=== PATIENT | female | born 1995 | race Caucasian/White ===

== ENCOUNTER 2017-02-01 20:33 | Outpatient (CLI) | payer OTHER ==
[~2017-02-01] VITALS: Ht 157.5 cm; Wt 69.6 kg
[2017-02-01 20:41] VITALS: BMI 27.0
[2017-02-01 20:43] VITALS: BP 111/70; PULSE 115; RESP 18
[2017-02-01 20:46] VITALS: Ht 157.5 cm; Wt 69.6 kg
[2017-02-01] MEDS ORDERED: PRENAT PO (21:53)
[2017-02-01] MEDS ORDERED: FERR325C PO (21:53)
[2017-02-01] MEDS ORDERED: CALC-516 PO (21:53)
--- NOTE | 2017-02-01 21:59 | RADRPT ---
PROCEDURE: Limited obstetric ultrasound CLINICAL INDICATION: Pain , pelvic cramping TECHNIQUE: Multiple transverse and longitudinal grayscale images of the pelvis were obtained brooks sabdominally and transvaginally.. COMPARISON: same day FINDINGS: The cervix is closed with a length of 3.7 cm. There is a single viable intrauterine gestation. Cardiac activity is present with 160 beats per min [place]. There is a vertex presentation. The placenta is posterior. There is no evidence for an abruption or placenta previa. RPTAT: AA IMPRESSION: Cervix length measures 3.7 cm. .Kamran Reyes MD, Date Time Electronically viewed and signed by .Kamran Reyes MD, on 02/01/2017 21:59 .S/
[2017-02-01 22:09] LABS: ADD UMIC YES; URINE BILIRUBIN (Dip) NEGATIVE (NEGATIVE); URINE BLOOD (Dip) NEGATIVE (NEGATIVE); URINE COLOR LT. YELLOW (YELLOW); URINE GLUCOSE (Dip) NEGATIVE (NEGATIVE); URINE KETONES (Dip) NEGATIVE (NEGATIVE); URINE LEUKOCYTE ESTERASE (Dip) 3+ (NEGATIVE); URINE NITRITE (Dip) NEGATIVE (NEGATIVE); URINE TOTAL PROTEIN (Dip) NEGATIVE (NEGATIVE); URINE UROBILINOGEN (Dip) 0.2 E.U./dL (0.1-1.0)
[2017-02-01 22:24] LABS: SQUAMOUS EPITHELIAL CELL,UR MODERATE; URINE RBCS NONE SEEN /HPF (0)
[2017-02-01] MEDS ORDERED: ACETAMINOPHEN 325 MG TAB PO STA (22:39)
--- NOTE | 2017-02-02 00:14 | TRIAGE ---
OB Triage Datetime Report Generated by CPN: 02/02/2017 00:14 Datetime: 02/01/2017 23:07 Stage of : OB Triage Labor Evaluation Frequency: occasional Monitor Mode: External Duration (sec)2399: 60-120 Pattern: Normal: <= 5 Contractions in 10 Minutes Resting Tone [place]: Relaxed Heart Rate FHR Baseline Rate: 130 Monitor Mode: External US Variability: Moderate 6-25 bpm Accelerations: 15X15 Decelerations: Variable Category: Category II Comments: Normal for gestational age. Pain Assessment Pain Scale: 6 Pain Presence: Intermittent Pain Type: Ache Pain Location: Abdomen; Right Groin; Left Groin Pain Goal: 3 Pain Relief Measures: Comfort Measures Datetime: 02/01/2017 22:42 Pain Assessment Pain Scale: 8 Pain Presence: Intermittent Pain Type: Ache Pain Location: Abdomen; Right Groin; Left Groin Pain Goal: 3 Pain Relief Measures: Pain Medication Given; Comfort Measures Pain Assessment Comments: Tylenol 650mg PO given for pain Datetime: 02/01/2017 22:00 Stage of : OB Triage Labor Evaluation Frequency: occasional Monitor Mode: External Duration (sec)2399: 60-120 Pattern: Normal: <= 5 Contractions in 10 Minutes Resting Tone [place]: Relaxed Heart Rate FHR Baseline Rate: 140 Monitor Mode: External US Variability: Moderate 6-25 bpm Accelerations: 15X15 Decelerations: None Category: Category I Datetime: 02/01/2017 21:01 Stage of : OB Triage Temperature Route: Oral Labor Evaluation Frequency: none Monitor Mode: External Pattern: Normal: <= 5 Contractions in 10 Minutes Resting Tone [place]: Relaxed Heart Rate FHR Baseline Rate: 140 Monitor Mode: External US Variability: Moderate 6-25 bpm Accelerations: 15X15 Decelerations: Variable Category: Category II Comments: Normal for gestational age Pain Assessment Pain Scale: 8 Pain Presence: Intermittent Pain Type: Contraction Pain Location: Right Groin; Left Groin Pain Goal: 3 Pain Relief Measures: Comfort Measures Datetime: 02/01/2017 20:53 Time of Arrival: 02/01/2017 20:25 EGA: 29.2 Arrived By: Wheelchair Arrived From: Home Chief Complaint: LOW ABD CRAMPING SINCE 1330 Movement: Present Contractions: Irregular Time Contractions Began: 02/01/2017 13:30 Contractions: Q 10MIN Rupture of Membranes: Denies Vaginal Bleeding: None Vaginal Discharge: Denies Recent Sexual Intercouse: Denies Abdominal Trauma: Not Applicable Patient Complaints: Cramping; Back Pain Time Provider Notified: 02/01/2017 21:10 Provider Notified: Initial Plan: VS, EFM Datetime: 02/01/2017 20:46 Assessment Type: Triage Maternal Assessment Level of Consciousness: Fully Conscious DTR's/Clonus: DTRs 1+ Headache: Denies Blurred Vision: No Respiratory Effort: Unlabored Breath Sounds, Left: Clear and Equal Breath Sounds, Right: Clear and Equal Nausea/Vomiting: Present RUQ Epigastric Pain: Denies Lower Extremities Edema: None Degree: None Upper Extremities Edema: None Degree: None Facial Edema: None Fall Risk Assessment History of Falling: (0) No Secondary Diagnosis: (15) Yes (Annotations: C/S X 2) Ambulatory Aid: (0) Bedrest/Nurse Assist IV Therapy: (0) No Gait: (0) Normal/Bedrest/Immobile Mental Status: (0) Oriented to Own Ability Fall Score: 15 Fall Risk Score Definition: No Risk: No action required Datetime: 02/01/2017 20:35 Stage of : OB Triage Monitor Mode: External Monitor Mode: External US
--- NOTE | 2017-02-02 05:35 | QN ---
Documentation Comment 22-year-old with IUP at 29 weeks and 2 days presented with complaint of lower abdominal pain and cramps. Patient denies any leaking of fluid vaginal bleeding. She also reports pain with urination. She reports good movement. Physical examination: General appearance: Alert and oriented 4 patient is not in any acute distress. Abdomen: Soft, gravid, fundal height consistent with gestational age. no rebound tenderness, mild suprapubic tenderness noted Extremities: No calf tenderness, no click, no edema NST: Category 1, appropriate for gestational age Contractions on the monitor every 10-15 minutes noted. PROCEDURE: Limited obstetric ultrasound CLINICAL INDICATION: Pain , pelvic cramping TECHNIQUE: Multiple transverse and longitudinal grayscale images of the pelvis were obtained transabdominally and transvaginally.. COMPARISON: same day FINDINGS: The cervix is closed with a length of 3.7 cm. There is a single viable intrauterine gestation. Cardiac activity is present with 160 beats per minute. There is a vertex presentation. The placenta is posterior. There is no evidence for an abruption or placenta previa. RPTAT: AA IMPRESSION: Cervix length measures 3.7 cm. Urine Results - 72 Hrs Test 02/01/17 21:25 Urine Color LT. YELLOW (YELLOW) Urine Clarity CLEAR (CLEAR) Urine pH 6.5 (5.0-9.0) Urine Specific [place] <=1.005 (1.003-1.030) Urine Ketones NEGATIVE (NEGATIVE) Urine Nitrite NEGATIVE (NEGATIVE) Urine Bilirubin NEGATIVE (NEGATIVE) Urine Urobilinogen 0.2 E.U./dL (0.1-1.0) Urine Leukocyte Esterase 3+ (NEGATIVE) H Urine Microscopic RBC NONE SEEN/HPF (0) Urine Microscopic WBC 0-2/HPF (0) Urine Squamous Epithelial Cells MODERATE Urine Hemoglobin NEGATIVE (NEGATIVE) Urine Glucose NEGATIVE% (NEGATIVE) Urine Total Protein NEGATIVE (NEGATIVE) Assessment: IUP at 29 weeks and 2 days No evidence of labor Dysuria and suprapubic tenderness. UA suspicious for UTI contractions likely related to UTI Cervical length long Contractions resolved with p.o. hydration Plan: DC home Strict labor precaution and kick count Antibiotics Macrobid p.o. 100 mg twice daily for 7 days P.o. adequate hydration discussed Follow-up with her OB clinic in 1-2 days discussed. RTC to triage if the symptoms recurs immediately, or have any leaking of fluid, vaginal bleeding decreased movement or any other concerns. Patient verbalized understanding. ANTONIO ARANA MD Feb 02, 2017 05:35
== END 2017-02-01 23:59 | disposition home or self-care (01) ==
LOC: OBT 20:33 → L-D 20:34 → OBT 23:59
PROVIDERS: ATTEND Obstetrics & Gynecology
DX: O26.892 Other specified pregnancy related conditions, second trimester (principal); R10.30 Lower abdominal pain, unspecified
CPT/HCPCS: 76817; 81001; Z7500; Z7610; 81003; G0463

== ENCOUNTER 2017-04-09 08:51 | Inpatient (IN) | payer MEDICAID, OTHER ==
[~2017-04-09] VITALS: Ht 157.5 cm; Wt 71.3 kg
[2017-04-09] VITALS (15 sets, daily range): BP systolic 98–125; BP diastolic 53–74; PULSE 57–104; RESP 18–20; Ht 157.5 cm; Wt 71.3 kg
[~2017-04-09 08:51] MED LIST: CALC-516 PO; FERR325C PO; PRENAT PO
[2017-04-09] MEDS: LACTATED RINGER'S 1,000 ML IV SCH (09:18)
[2017-04-09] MEDS ORDERED: LACTATED RINGER'S 1,000 ML IV ONE (09:23)
[2017-04-09 09:24] LABS: ADD SCAN DIFF NO
[2017-04-09 09:29] LABS: BASOPHILS % 0.1 % (0.0-2.0); EOSINOPHILS # 0.1 10^3/ul (0.0-0.5); EOSINOPHILS % 1.3 % (0.0-7.0); HEMATOCRIT 38.7 % (37.0-47.0); HEMOGLOBIN 12.8 g/dl (12.0-16.0); LYMPHOCYTES % 13.6 % (15.0-51.0); MEAN CORPUSCULAR HGB CONC 33.1 g/dl (32.0-37.0); MEAN CORPUSCULAR VOLUME 87.6 fl (82.0-101.0); MEAN PLATELET VOLUME 11.2 fl (7.4-10.4); MONOCYTE # 0.5 10^3/ul (0.3-0.9); MONOCYTES % 6.7 % (0.0-11.0); NEUTROPHIL # 5.9 10^3/ul (1.6-7.5); NEUTROPHILS % 77.9 % (39.0-77.0); PLATELET COUNT 150 10^3/UL (140-415); RED BLOOD COUNT 4.42 10^6/ul (4.20-5.40); RED CELL DISTRIBUTION WIDTH 14.8 % (11.5-14.5); WHITE BLOOD COUNT 7.6 10^3/ul (4.8-10.8)
[2017-04-09] MEDS ORDERED: CEFAZOLIN 2 GM/50 ML (PMX) 50 ML IV SCH (09:30)
[2017-04-09] MEDS ORDERED: METHYLERGONOVINE 0.2 MG INJ IM PRN ×2 (09:30→13:30)
[2017-04-09] MEDS ORDERED: ONDANSETRON 4 MG INJ IV ONE (09:30)
[2017-04-09] MEDS ORDERED: OXYTOCIN 30 UNITS/LR 500 ML IV PRN ×2 (09:30→13:30)
[2017-04-09] MEDS ORDERED: MISOPROSTOL 200 MCG TAB PR PRN ×2 (09:30→13:30)
[2017-04-09] MEDS ORDERED: CARBOPROST 250 MCG INJ IM PRN ×2 (09:30→13:30)
[2017-04-09] MEDS ORDERED: CITRIC ACID/SODIUM CITRATE 15 ML CUP PO ONE (09:30)
[2017-04-09 09:42] LABS: INR 1.04; PROTIME 13.6 Sec (12.2-14.2); PT RATIO 1.1
[2017-04-09 09:43] LABS: PARTIAL THROMBOPLASTIN TIME 27.4 Sec (25.0-35.0)
[2017-04-09] MEDS ORDERED: FENTAnyl 50 MCG/ML VIAL ONE (10:08)
[2017-04-09] MEDS ORDERED: morphine SULFATE/PF (10 MG/10 ML) INJ ONE (10:09)
[2017-04-09] MEDS ORDERED: METOCLOPRAMIDE 10 MG INJ ONE (10:20)
[2017-04-09] MEDS ORDERED: PHENYLephrine (100 MCG/ML) 5ML SYG ONE (10:24)
[2017-04-09] MEDS ORDERED: ONDANSETRON 4 MG INJ IV PRN (11:00)
[2017-04-09] MEDS ORDERED: HYDROmorphONE 1 MG/ML SYG IV PRN ×2 (11:00)
[2017-04-09] MEDS ORDERED: NALOXONE (0.4 MG/ML) INJ IV PRN (11:00)
[2017-04-09] MEDS ORDERED: PROCHLORPERAZINE 10 MG INJ IV PRN (11:00)
--- NOTE | 2017-04-09 11:29 | HP ---
Date/Time of Note Date/Time of Note DATE: 04/09/17 TIME: 11:23 OB - History Hx of Present Free Text/Dictation 22 years old female 3 para 2 history of 2 previous section with a EDC April 17, [address] [facility] at 38 weeks and 6 days in labor patient had requested bilateral tubal ligation at the time of her section, failure rate of this procedure increased risk of ectopic future failure to conceive and also the complication of the surgery including bowel and bladder injury infection wound hematoma and hemorrhage has been discussed with the patient and she would like to proceed with the procedure. Chief Complaint: 38 weeks 6 days history of 2 previous in labor Estimated Due Date: Apr 17, 2017 : 3 Para: 2 Care: Good Care Ultrasounds: Normal mid trimester US Obstetrical Complications: None Past Family/Social History * Past Medical, Surgical, Family and Obstetric Histories reviewed from chart. Rubella: immune RPR/VDRL: Negative GBS Status: Negative OB Admission Exam Vital Signs Vital Signs Vital Signs Date Time Temp Pulse Resp B/P Pulse Ox O2 Delivery O2 Flow Rate FiO2 04/09/17 09:21 98.3 104 113/73 Physical Exam HEENT: WNL Heart: Rhythm Normal Lungs: Clear, Equal Abdomen: WNL Extremities: Normal Reflexes: Normal Cervical Dilatation: other (Deferred) Membranes: Intact Heart Rate: 130's Accelerations: Accelerations Present Decelerations: No Decelerations Varibility: Moderate Contractions on Admission: < 5 Minutes Apart Intensity: Moderate Last 72 hours Lab Results CBC & BMP 04/09/17 09:12 OB Assessment/Plan Reason for admission: other (Repeat bilateral tubal ligation) Induction Method: other (Repeat bilateral tubal ligation) MARGARITO PRICE MD Apr 09, 2017 11:29
[2017-04-09] MEDS: KETOROLAC 30 MG INJ IV PRN ×2 (12:33→21:31)
[2017-04-09] MEDS ORDERED: OXYTOCIN 30 UNITS/LR 500 ML IV SCH (13:07)
--- NOTE | 2017-04-09 13:18 | OPR ---
DATE OF OPERATION: 04/09/2017 PREOPERATIVE DIAGNOSES: 1. Intrauterine at 38 weeks and 6 days. 2. History of 2 previous sections 3. Voluntary sterilization, bilateral tubal ligation. POSTOPERATIVE DIAGNOSES: 1. Intrauterine at 38 weeks and 6 days. 2. History of 2 previous sections 3. Voluntary sterilization, bilateral tubal ligation. OPERATION PERFORMED: Repeat transverse low cervical section. SURGEON: Margarito Rhodes MD ____repeat transverse low cervical section, bilateral tubal ligation. SURGEON: Margarito Rhodes MD LAWYER: Dr. ROMAIN LEA MD ANESTHESIA: Spinal. ANESTHESIOLOGIST: ____. FINDINGS: Live baby boy, 8 and 9. Baby weighed 3980 grams. DETAILS OF THE PROCEDURE: Under satisfactory spinal anesthesia, the patient was prepped and draped and placed in supine position, tilted to the left. Pfannenstiel incision was made. Old scar was re moved. Incision carried through the subcutaneous tissue. Bleeders brought under control with elect rocautery. Fascia incised to the length of the incision. Rectus muscle divided in midline. Perito neum exposed, entered through a transverse incision. Exploration of abdomen. Gravid uterus, normal appearing tubes and ovaries, extremely thinned out lower segment of the uterus. Bladder flap was d eveloped. Transverse incision was made in the lower segment of the uterus. Amniotic sac ruptured. Clear amniotic fluid noted. Live baby boy was delivered from occiput posterior. Nasal oropharynge al suction was performed. Baby handed to the team for immediate attention. Patient receiv ed 20 units of Pitocin. Placenta delivered manually intact. Uterine cavity cleaned with wet sponge and drainage established. Uterus closed in 2 layers using Monocryl #1 in continuous fashion. Bila teral tubal ligation performed by identifying the ampullar section of the right fallopian tube which was grasped by a Brandie. A loop was made. Suture material used #0 plain catgut was reinforced wi th the same suture material. The top of the loop 3/4 of an inch was excised. The cut end of the tu be was cauterized and specimen submitted for the pathology. The same procedure performed for the op posite side. Peritoneal cavity irrigated with warm saline. Sponge, needle and instrument reported to be correct. Abdominal peritoneum closed with 2-0 chromic catgut continuously. Rectus muscle chloé roximated with 2 interrupted 2-0 chromic catgut. Fascia closed with #1 PDS in a continuous fashion. Subcutaneous tissue approximated with interrupted 2-0 chromic catgut. Skin closed with charly. Estimated blood loss 600 mL. Urine bag contained 200 mL of clear urine. Patient tolerated the proc edure well, transferred to recovery room in a good condition. Dictated By: MARGARITO MCGRATH/MIMI Conf#: [id number] DID#: [id number]
[2017-04-09] MEDS ORDERED: CEFAZOLIN 1 GM/50 ML (PMX) 50 ML IVPB SCH ×2 (13:30→17:30)
[2017-04-09] MEDS ORDERED: ACETAMINOPHEN/CODEINE #3 TAB PO PRN (13:30)
[2017-04-09] MEDS ORDERED: OXYCODONE/ACETAMINOPHEN (5/325) TAB PO PRN (13:30)
[2017-04-09] MEDS ORDERED: LANOLIN 7 GM TUBE TOP PRN (13:30)
[2017-04-09] MEDS: DIPHENHYDRAMINE 50 MG INJ IV PRN ×2 (14:59→21:30)
[2017-04-10] MEDS: LACTATED RINGER'S 1,000 ML IV SCH (01:25)
[2017-04-10 03:30] VITALS: BP 94/55; PULSE 82; RESP 20
[2017-04-10] MEDS: KETOROLAC 30 MG INJ IV PRN ×2 (03:47→09:22)
[2017-04-10 07:28] LABS: ADD SCAN DIFF NO
[2017-04-10 07:35] LABS: BASOPHILS % 0.2 % (0.0-2.0); EOSINOPHILS # 0.1 10^3/ul (0.0-0.5); EOSINOPHILS % 0.9 % (0.0-7.0); HEMATOCRIT 34.2 % (37.0-47.0); HEMOGLOBIN 11.4 g/dl (12.0-16.0); LYMPHOCYTES # 1.2 10^3/ul (0.8-2.9); LYMPHOCYTES % 13.5 % (15.0-51.0); MEAN CORPUSCULAR HEMOGLOBIN 29.4 pg (29.0-33.0); MEAN CORPUSCULAR HGB CONC 33.3 g/dl (32.0-37.0); MEAN CORPUSCULAR VOLUME 88.1 fl (82.0-101.0); MEAN PLATELET VOLUME 11.4 fl (7.4-10.4); MONOCYTE # 0.6 10^3/ul (0.3-0.9); MONOCYTES % 6.5 % (0.0-11.0); NEUTROPHIL # 6.9 10^3/ul (1.6-7.5); NEUTROPHILS % 78.6 % (39.0-77.0); PLATELET COUNT 142 10^3/UL (140-415); RED BLOOD COUNT 3.88 10^6/ul (4.20-5.40); RED CELL DISTRIBUTION WIDTH 14.9 % (11.5-14.5); WHITE BLOOD COUNT 8.8 10^3/ul (4.8-10.8)
[2017-04-10 08:00] VITALS: BP 91/57; PULSE 86; RESP 18
[2017-04-10] MEDS: SENNA/DOCUSATE NA (8.6MG/50MG) TAB PO SCH ×2 (09:22→20:46)
[2017-04-10] MEDS: MULTIVIT/MIN/FOLATE/IRON/PREN TAB PO SCH (09:22)
--- NOTE | 2017-04-10 10:11 | PN ---
Date/Time of Note Date/Time of Note DATE: 04/10/17 TIME: 10:10 OB Subjective Subjective Subjective Post day 1 Afebrile vital signs stable abdomen soft mildly distended bowel sounds present lochia moderate incision dry extremities normal ambulation encouraged MARGARITO PRICE MD Apr 10, 2017 10:11
[2017-04-10] MEDS: IBUPROFEN 600 MG TAB PO SCH ×3 (11:45→23:54)
[2017-04-10] MEDS: OXYCODONE/ACETAMINOPHEN (5/325) TAB PO PRN ×3 (11:46→20:47)
[2017-04-10 20:00] VITALS: BP 97/68; PULSE 80; RESP 18
[2017-04-10] MEDS: ACETAMINOPHEN/CODEINE #3 TAB PO PRN (22:33)
[2017-04-11] MEDS: OXYCODONE/ACETAMINOPHEN (5/325) TAB PO PRN ×5 (01:22→23:54)
[2017-04-11 03:59] VITALS: BP 108/70; PULSE 56; RESP 20
[2017-04-11] MEDS: IBUPROFEN 600 MG TAB PO SCH ×4 (06:17→23:54)
[2017-04-11 08:00] VITALS: BP 107/70; PULSE 72; RESP 20
[2017-04-11] MEDS: SENNA/DOCUSATE NA (8.6MG/50MG) TAB PO SCH ×2 (08:02→21:18)
[2017-04-11] MEDS: MULTIVIT/MIN/FOLATE/IRON/PREN TAB PO SCH (08:02)
--- NOTE | 2017-04-11 10:34 | PN ---
Date/Time of Note Date/Time of Note DATE: 04/11/17 TIME: 10:33 OB Subjective Subjective Subjective Post day 2 Vital signs stable abdomen soft uterus firm incision dry bowel sounds lochia moderate extremity normal MARGARITO PRICE MD Apr 11, 2017 10:34
[2017-04-11] MEDS ORDERED: NA PHOSPHATE/BIPHOS 133 ML ENEMA PR ONE (11:00)
[2017-04-11 16:15] VITALS: BP 108/63; PULSE 95; RESP 20
[2017-04-11 19:45] VITALS: BP 118/69; PULSE 87; RESP 20
[2017-04-11] MEDS ORDERED: VITAMIN A & D 5 GM OINT PACKET TOP ONE (20:06)
[2017-04-11] MEDS: GUAIFENESIN/DM 5ML CUP PO PRN (21:18)
[2017-04-11] MEDS: ACETAMINOPHEN/CODEINE #3 TAB PO PRN (21:29)
--- NOTE | 2017-04-11 21:47 | RADRPT ---
PROCEDURE: XR Chest. CLINICAL INDICATION: Shortness of breath TECHNIQUE: PA and Lateral views of the chest were obtained. COMPARISON: There are no similar studies submitted for comparison. FINDINGS: The heart is normal in size. The lungs are clear without evidence of infiltrate. There is no pleural effusion. No pneumothorax is identified. The osseous structures are intact. IMPRESSION: No evidence for acute cardiopulmonary disease. RPTAT: HIKT .Otto Guallpa MD, MD Date Time Electronically viewed and signed by .Otto Guallpa MD, MD on 04/11/2017 21:46 .T/
[2017-04-12] MEDS: GUAIFENESIN/DM 5ML CUP PO PRN ×3 (01:36→13:27)
[2017-04-12 04:20] VITALS: BP 100/68; PULSE 77; RESP 20
[2017-04-12] MEDS: IBUPROFEN 600 MG TAB PO SCH ×3 (05:55→17:36)
[2017-04-12] MEDS: OXYCODONE/ACETAMINOPHEN (5/325) TAB PO PRN ×3 (07:15→18:53)
[2017-04-12] MEDS ORDERED: DIPHTH/TET/ACEL PERTUSS (ADULT) 0.5 ML VIAL IM* ONE (09:00)
[2017-04-12 09:10] VITALS: BP 101/68; PULSE 72; RESP 18
[2017-04-12] MEDS: MULTIVIT/MIN/FOLATE/IRON/PREN TAB PO SCH (09:24)
[2017-04-12] MEDS: SENNA/DOCUSATE NA (8.6MG/50MG) TAB PO SCH (09:24)
[2017-04-12 16:00] VITALS: BP 102/82; PULSE 80; RESP 18
--- NOTE | 2017-04-12 17:43 | PD.PPDC ---
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
--- NOTE | 2017-04-12 17:47 | DS ---
Date/Time of Note Date/Time of Note DATE: 04/12/17 TIME: 17:45 Discharge Summary Admission/Discharge Info Admit Date/Time Apr 09, 2017 at 09:07 Discharge Date/Time April 09, 2017 at 1740 Final Diagnosis previous section Patient Condition: Good Procedures Repeat section Hx of Present Illness 39 weeks history of previous section admitted for repeat section Hospital Course Satisfactory uneventful Home Meds Reported Medications Calcium Carbonate/Vitamin D3 (OYSTER SHELL CALCIUM TABLET) 1 Each Tablet, 1 EACH PO, TAB 02/01/17 Ferrous Sulfate (Iron) 325 Mg Capsule.er, 325 MG PO, CAP 02/01/17 Multivit/Min/Fol Ac/Iron/Pren* ( S*) 1 Tab Tab, 1 TAB PO DAILY, TAB 02/01/17 Primary Care Provider Care Physician No Primary Time spent on discharge: < 30 minutes MARGARITO PRICE MD Apr 12, 2017 17:47
== END 2017-04-12 20:00 | disposition home or self-care (01) | DRG 766 ==
LOC: OBT 08:51 → L-D 08:52 → OBT 09:06 → L-D 09:07 → PP1 15:04
PROVIDERS: ADMIT Obstetrics & Gynecology; ATTEND Obstetrics & Gynecology
PROC: 0UB70ZZ Excision of Bilateral Fallopian Tubes, Open Approach (ICD-10-PCS; 2017-04-09)
PROC: 10D00Z1 Extraction of Products of Conception, Low, Open Approach (ICD-10-PCS; principal; 2017-04-09 10:30)
DX: O34.211 Maternal care for low transverse scar from previous cesarean delivery (principal); Z30.2 Encounter for sterilization; Z3A.38 38 weeks gestation of pregnancy; Z37.0 Single live birth
CPT/HCPCS: 71020; 85025; 85610; 85730; 86592; 86850; 86900; 86901; 88302; 90715; G0463; J0690; J1170; J1200; J1885; J2274; J2370; J2405; J2590; J2765; J3010; J7120